=== PATIENT | male | born 1935 | race Caucasian/White ===

== ENCOUNTER 2018-01-21 18:32 | Emergency (ER) | payer MEDICARE, OTHER ==
[~2018-01-21] VITALS: Ht 175.3 cm; Wt 113.6 kg
[2018-01-21] MEDS ORDERED: DEXT1CAP3 PO (19:03)
[2018-01-21] MEDS ORDERED: SERT25TA5 PO (19:03)
[2018-01-21] MEDS ORDERED: PIMA17TA PO (19:03)
[2018-01-21] MEDS ORDERED: FINA1TAB17 PO (19:08)
[2018-01-21] MEDS ORDERED: FURO20TA4 PO (19:08)
[2018-01-21] MEDS ORDERED: LOVA20 PO (19:08)
[2018-01-21] MEDS ORDERED: ASPI81TA43 PO (19:08)
[2018-01-21] MEDS ORDERED: PRAM15 PO (19:08)
[2018-01-21] MEDS ORDERED: AMLO-511 PO (19:08)
[2018-01-21] MEDS ORDERED: LISI-660 PO (19:08)
[2018-01-21] MEDS ORDERED: LEVO50TA11 PO (19:08)
[2018-01-21] MEDS ORDERED: CARB-38 PO (19:08)
[2018-01-21] MEDS ORDERED: PERTUSS(ACELL),DIPH,TET VAC/PF 0.5 ML VIAL IM ONE (19:15)
[2018-01-21 19:21] LABS: BASOPHILS % (AUTO) 0.8 % (0.0-2.0); EOSINOPHILS % (AUTO) 6.6 % (1.0-6.0); HEMOGLOBIN 14.1 g/dL (13.5-17.5); LYMPHOCYTES # (AUTO) 1.9 K/uL (1.0-4.8); LYMPHOCYTES % (AUTO) 26.9 % (22.0-44.0); MEAN CORPUSCULAR HEMOGLOBIN 35.3 pg (26.0-34.0); MEAN CORPUSCULAR HGB CONC 34.3 G/dL (31.0-37.0); MEAN CORPUSCULAR VOLUME 103 fL (80-100); MONOCYTES # (AUTO) 0.6 K/uL (0.1-1.0); MONOCYTES % (AUTO) 7.8 % (2.0-9.0); NEUTROPHILS # (AUTO) 4.1 K/uL (1.8-7.7); NEUTROPHILS % (AUTO) 57.9 % (40.0-70.0); PLATELET COUNT (AUTO) 226 K/uL (150-450); RED BLOOD CELL COUNT(AUTO) 3.98 MIL/uL (4.50-5.90); RED CELL DISTRIBUTION WIDTH 13.7 % (11.5-14.5)
[2018-01-21 19:30] LABS: ANION GAP 9 mmol/L (8-16); CALCIUM, TOTAL 8.6 mg/dL (8.8-10.5); CARBON DIOXIDE 26 mmol/L (22-29); CHLORIDE 104 mmol/L (98-107); CREATININE 1.14 mg/dL (0.60-1.30); GLOMERULAR FILTR. RATE CALC > 60 mL/min (>60); GLUCOSE,RANDOM 134 mg/dL (70-110); POTASSIUM 4.2 mmol/L (3.5-5.1); SODIUM SERUM 139 mmol/L (136-145); UREA NITROGEN, BLOOD 22 mg/dL (7-18)
[2018-01-21 19:35] LABS: ALANINE AMINOTRANSFERASE 7 U/L (12-78); ALBUMIN 3.1 g/dL (3.4-5.0); ALKALINE PHOSPHATASE 199 U/L (46-116); ASPARTATE AMINOTRANSFERASE 16 U/L (15-37); BILIRUBIN,TOTAL 0.5 mg/dL (0.1-1.0); TOTAL PROTEIN, SERUM 6.7 g/dL (6.4-8.2)
[2018-01-21 19:55] LABS: B-TYPE NATRIURETIC PEPTIDE 44 pg/mL (0-100)
[2018-01-21 21:50] VITALS: BP 115/55
[2018-01-21] MEDS ORDERED: BACITRACIN 0.9 GM PACKET OINTMENT TP ONE (22:00)
== END 2018-01-21 22:30 | disposition home or self-care (01) ==
LOC: EMS 18:34
DX: S01.01XA Laceration without foreign body of scalp, initial encounter (principal); S51.002A Unspecified open wound of left elbow, initial encounter; I48.91 Unspecified atrial fibrillation; E78.00 Pure hypercholesterolemia, unspecified; I10 Essential (primary) hypertension; Z79.82 Long term (current) use of aspirin; W05.0XXA Fall from non-moving wheelchair, initial encounter; Y93.89 Activity, other specified; Y92.89 Other specified places as the place of occurrence of the external cause; Y99.8 Other external cause status
CPT/HCPCS: 70450; 72125; 90471; 90715; 93005; 99285